=== PATIENT | female | born 1960 | race African-American/Black ===

== ENCOUNTER 2017-10-12 14:07 | Inpatient (IN) | payer BC ==
[~2017-10-12] VITALS: Ht 162.6 cm; Wt 104.3 kg
--- NOTE | 2017-10-12 14:26 | EKG ---
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
--- NOTE | 2017-10-12 14:42 | RAD ---
Single view of the chest. 10/12/2017 2:30 PM Indication: LT SIDED CHEST PAIN TODAY Comparison: None Findings: Exam somewhat limited by body habitus. No pneumothorax or pleural effusion is identified. No definite focal consolidation is seen. Heart size is within normal limits. Lower thorax is grossly intact. IMPRESSION: No radiographic evidence of acute cardiopulmonary process. Electronically signed by: Ced Livingston MD (10/12/2017 2:38 PM) [id number]
[2017-10-12 15:11] LABS: BASO # 0.1 x10^3/uL (0.0-0.2); BASO % 1 % (0-3); EOS # 0.1 x10^3/uL (0.0-0.7); EOS % 2 % (0-3); HEMATOCRIT 42.9 % (36.0-47.0); HEMOGLOBIN 14.4 g/dL (12.0-15.5); LYMPH # 2.2 x10^3/uL (1.0-4.8); LYMPH % 31 % (24-48); MEAN CORPUSCULAR HEMOGLOBIN 29 pg (25-35); MEAN CORPUSCULAR HGB CONC 34 g/dL (31-37); MEAN CORPUSCULAR VOLUME 88 fL (79-100); MONO # 0.5 x10^3/uL (0.0-1.1); MONO % 7 % (0-9); NEUT # 4.2 x10^3uL (1.8-7.7); NEUT % 59 % (31-73); PLATELET COUNT 333 x10^3/uL (140-400)
[2017-10-12 15:25] LABS: PROTHROMBIN TIME PATIENT 13.1 SEC (11.7-14.0)
[2017-10-12 15:34] LABS: CALCIUM 9.7 mg/dL (8.5-10.1); CREATININE 0.9 mg/dL (0.6-1.0); GFR 78.7; POTASSIUM 3.3 mmol/L (3.5-5.1)
--- NOTE | 2017-10-12 15:34 | PHYS DOC ---
Past Medical History Past Medical History: Hypertension Past Surgical History: Other Additional Past Surgical Histo: Inguinal hernia Alcohol Use: None Drug Use: None Adult General Chief Complaint Chief Complaint: CHEST PAIN HPI HPI 57-year-old female presenting to the emergency department today with chest pressure associated with nausea and shortness of breath. She describes it as a squeezing sensation that comes and goes. She took 1 nitroglycerin prior to arrival by EMS with no relief. This started around 3 AM this morning. It does not radiate. She has a family history of heart disease and high blood pressure. She denies diabetes high cholesterol or smoking. She denies unilateral leg swelling history of blood clots recent immobilization or surgery. Social history: The patient denies smoking drinking or IV drug use. Past medical history: History of high blood pressure. Review of systems is negative for fevers or chills. Positive for nausea without vomiting. Positive for shortness of air. All other review of systems is negative unless otherwise noted in history of present illness. ED course: 57-year-old female presenting to the emergency department today with a chest pressure. EKG obtained and reviewed by myself 2. Initial EKG performed at 2:21 PM shows sinus rhythm with a regular rate. ST segments are congruent. Not suggestive of ACS. Repeat EKG at 3:15 continues to show similar EKG findings without any acute evolving changes. Not suggestive of ACS. I reviewed the patient's EKG from clinic which appears to have an artifactual component to some of the ST segments. Blood work obtained which shows normal CBC. Chemistry panel unremarkable other than mild low potassium. D-dimer is elevated. We'll proceed with angiogram. I discussed the case with Dr. Wise who accepts the patient for admission. Angiogram pending at that time. Review of Systems Review of Systems SEE ABOVE. Current Medications Current Medications Current Medications Medications (Trade) Dose Ordered Sig/[facility] Start Time Stop Time Status Last Admin Dose Admin Morphine Sulfate (Morphine Sulfate) 2 mg PRN Q2HR PRN 10/12/17 15:45 10/13/17 15:44 Ondansetron HCl (Zofran) 4 mg PRN Q8HRS PRN 10/12/17 15:45 10/13/17 15:44 Sodium Chloride 1,000 ml @ 100 mls/hr Q10H 10/12/17 15:42 10/13/17 15:41 Allergies Allergies Allergies Coded Allergies Type Severity Reaction Last Updated Verified No Known Drug Allergies 10/12/17 No Physical Exam Physical Exam SEE ABOVE Constitutional: Well developed, well nourished, no acute distress, non-toxic appearance. [] HENT: Normocephalic, atraumatic, bilateral external ears normal, oropharynx moist, no oral exudates, nose normal. [] Eyes: PERRLA, EOMI, conjunctiva normal, no discharge. [] Neck: Normal range of motion, no tenderness, supple, no stridor. [] Cardiovascular:Heart rate regular rhythm, no murmur [] Lungs & Thorax: Bilateral breath sounds clear to auscultation [] Abdomen: Bowel sounds normal, soft, no tenderness, no masses, no pulsatile masses. [] Skin: Warm, dry, no erythema, no rash. [] Back: No tenderness, no CVA tenderness. [] Extremities: No tenderness, no cyanosis, no clubbing, ROM intact, no edema. [] No signs of DVT. Nontender venous system. Neurologic: Alert and oriented X 3, normal motor function, normal sensory function, no focal deficits noted. [] Psychologic: Affect normal, judgement normal, mood normal. [] Current Patient Data Vital Signs Vital Signs Date Time Temp Pulse Resp B/P (MAP) Pulse Ox O2 Delivery O2 Flow Rate FiO2 10/12/17 15:11 83 182/91 (121) 98 Room Air 10/12/17 14:10 98.1 20 98.1 Lab Values Laboratory Tests Test 10/12/17 14:45 White Blood Count 7.0 x10^3/uL (4.0-11.0) Red Blood Count 4.90 x10^6/uL (3.50-5.40) Hemoglobin 14.4 g/dL (12.0-15.5) Hematocrit 42.9 % (36.0-47.0) Mean Corpuscular Volume 88 fL (79-100) Mean Corpuscular Hemoglobin 29 pg (25-35) Mean Corpuscular Hemoglobin Concent 34 g/dL (31-37) Red Cell Distribution Width 15.0 % (11.5-14.5) H Platelet Count 333 x10^3/uL (140-400) Neutrophils (%) (Auto) 59 % (31-73) Lymphocytes (%) (Auto) 31 % (24-48) Monocytes (%) (Auto) 7 % (0-9) Eosinophils (%) (Auto) 2 % (0-3) Basophils (%) (Auto) 1 % (0-3) Neutrophils # (Auto) 4.2 x10^3uL (1.8-7.7) Lymphocytes # (Auto) 2.2 x10^3/uL (1.0-4.8) Monocytes # (Auto) 0.5 x10^3/uL (0.0-1.1) Eosinophils # (Auto) 0.1 x10^3/uL (0.0-0.7) Basophils # (Auto) 0.1 x10^3/uL (0.0-0.2) Prothrombin Time 13.1 SEC (11.7-14.0) Prothrombin Time INR 1.0 (0.8-1.1) PTT 25 SEC (24-38) D-Dimer (Nita) 1.00 ug/mlFEU (0.00-0.50) H Sodium Level 142 mmol/L (136-145) Potassium Level 3.3 mmol/L (3.5-5.1) L Chloride Level 105 mmol/L (98-107) Carbon Dioxide Level 27 mmol/L (21-32) Anion Gap 10 (6-14) Blood Urea Nitrogen 7 mg/dL (7-20) Creatinine 0.9 mg/dL (0.6-1.0) Estimated GFR (Cockcroft-Gault) 78.7 Glucose Level 113 mg/dL (70-99) H Calcium Level 9.7 mg/dL (8.5-10.1) Total Bilirubin 0.6 mg/dL (0.2-1.0) Direct Bilirubin 0.1 mg/dL (0.0-0.2) Aspartate Amino Transferase (AST) 17 U/L (15-37) Alanine Aminotransferase (ALT) 29 U/L (14-59) Alkaline Phosphatase 132 U/L (46-116) H Troponin I Quantitative < 0.017 ng/mL (0.000-0.055) RN-Ntm-Q-Type Natriuretic Peptide 46 pg/mL (0-124) Total Protein 8.0 g/dL (6.4-8.2) Albumin 3.5 g/dL (3.4-5.0) Lipase 74 U/L (73-393) Laboratory Tests 10/12/17 14:45 Laboratory Tests 10/12/17 14:45 EKG EKG [] Radiology/Procedures Radiology/Procedures [] Course & Med Decision Making Course & Med Decision Making Pertinent Labs and Imaging studies reviewed. (See chart for details) [] Dragon Disclaimer Dragon Disclaimer This electronic medical record was generated, in whole or in part, using a voice recognition dictation system. Departure Departure Impression: Primary Impression: Chest pain Disposition: ADMITTED INPATIENT Admitting Physician: Margie Wise Condition: STABLE Referrals: JAMIE WYNN (PCP) LOPEZ RESENDIZ MD Oct 12, 2017 15:34
[2017-10-12 15:36] LABS: ALBUMIN 3.5 g/dL (3.4-5.0); DIRECT BILIRUBIN 0.1 mg/dL (0.0-0.2); TOTAL BILIRUBIN 0.6 mg/dL (0.2-1.0)
[2017-10-12] MEDS ORDERED: MORPHINE SULFATE 2 MG/ML VIAL. IV PRN (15:45)
[2017-10-12] MEDS ORDERED: ONDANSETRON PF 4 MG/2 ML VIAL. IV PRN ×2 (15:45→16:45)
[2017-10-12] MEDS ORDERED: LABETALOL 20 MG/4 ML DISP.SYRIN. IVP PRN (16:30)
[2017-10-12] MEDS ORDERED: HYDROcodone/APAP 5/325MG 1 TAB TABLET PO PRN (16:30)
[2017-10-12] MEDS ORDERED: ACETAMINOPHEN 500 MG TABLET PO PRN (16:30)
[2017-10-12] MEDS ORDERED: CONTRAST GIVEN. MC PRN (16:30)
[2017-10-12] MEDS ORDERED: diphenhydrAMINE HCL 25 MG CAPSULE PO PRN (16:30)
[2017-10-12] MEDS ORDERED: IOHEXOL 300 MG/ML 100ML VIAL. IV ONE (16:30)
--- NOTE | 2017-10-12 16:53 | PDOC1 ---
History and Physical Date of Admission Date of Admission DATE: 10/12/17 TIME: 16:47 Identification/Chief Complaint Chief Complaint Midsternal chest pain she described as burning Source Source: Caregiver, Chart review, Patient History of Present Illness History of Present Illness 57-year-old obese female with a BMI 39.5 with hypertension, claims compliance to meds, non-diabetes, no personal history of CAD but family history of CAD, father at around age 55 or 60 from it, comes in because of chest pain that woke her up from sleep. She described as midsternal, burning, moved a little bit to both bilateral arms, no diaphoresis or presyncopal symptoms. Workup including EKG and troponins reassuring but mild hypokalemia 3.3, she is on losartan. D-dimer is elevated 1.0. CTA is planned not yet done. NOn smoker, non drinker, no recreation drug use, Still complaining of some chest discomfort, but otherwise nontoxic appearing. Blood pressure on the high side. 140s to 160 systolic. Denies any headache blurry vision or neck pain. Admitted for chest pain rule out ACS. She has never Had a stress test or exercise treadmill done in past Past Medical History Cardiovascular: HTN, Hyperlipidemia Past Surgical History Past Surgical History: Hernia Repair Family History Family History: Heart Disease, High Cholestrol, Hypertension Social History Smoke: No ALCOHOL: none Drugs: None Current Problem List Problem List Problems Medical Problems: (1) Chest pain Status: Acute Current Medications Current Medications Current Medications Ondansetron HCl (Zofran) 4 mg PRN Q8HRS PRN IV NAUSEA/VOMITING; Start 10/12/17 at 15:45; Stop 10/12/17 at 16:32; Status DC Morphine Sulfate (Morphine Sulfate) 2 mg PRN Q2HR PRN IV PAIN; Start 10/12/17 at 15:45; Stop 10/13/17 at 15:44 Sodium Chloride 1,000 ml @ 100 mls/hr Q10H IV ; Start 10/12/17 at 15:42; Stop 10/13/17 at 15:41 Iohexol (Omnipaque 300 Mg/ml) 75 ml 1X ONCE IV ; Start 10/12/17 at 16:30; Stop 10/12/17 at 16:31; Status DC Info (CONTRAST GIVEN -- Rx MONITORING) 1 each PRN DAILY PRN MC SEE COMMENTS; Start 10/12/17 at 16:30; Stop 10/14/17 at 16:29 Ondansetron HCl (Zofran) 4 mg PRN Q6HRS PRN IV NAUSEA/VOMITING Last administered on 10/12/17at 16:40; Start 10/12/17 at 16:45 Acetaminophen (Tylenol) 500 mg PRN Q6HRS PRN PO MILD PAIN / TEMP; Start at 16:30 Acetaminophen/ Hydrocodone Bitart (Lortab 5/325) 1 tab PRN Q4HRS PRN PO PAIN; Start 10/12/17 at 16:30 Labetalol HCl (Normodyne Iv Push) 20 mg PRN Q2HR PRN IVP HYPERTENSION, SEE COMMENTS; Start 10/12/17 at 16:30 Diphenhydramine HCl (Benadryl) 25 mg PRN QHS PRN PO INSOMNIA; Start 10/12/17 at 16:30 Allergies Allergies: Coded Allergies: No Known Drug Allergies (Unverified , 10/12/17) ROS Review of System Per history of present illness the rest of ROS 14 point negative Physical Exam General: Alert, Oriented X3, Cooperative, No acute distress HEENT: Atraumatic, PERRLA, EOMI Lungs: Clear to auscultation, Normal air movement Heart: S1S2, RRR, no thrills, no rubs, no gallops, no murmurs Cardiovascular: S1, S2 Breasts: Normal, Rt breast nml w/o mass, Lt breast nml w/o mass, Nipples normal Abdomen: Normal bowel sounds, Soft, No tenderness, No hepatosplenomegaly, No masses Rectal Exam: not examined PELVIC: Nml ext genitalia Extremities: No clubbing, No cyanosis, No edema, Normal pulses, No tenderness/ swelling Skin: No rashes, No breakdown, No significant lesion Neuro: Normal gait, Normal speech, Strength at 5/5 X4 ext, Normal tone, Sensation intact, Cranial nerves 3-12 NL, Reflexes 2+ Psych/Mental Status: Mental status NL, Mood NL Vitals Vitals Vital Signs Date Time Temp Pulse Resp B/P (MAP) Pulse Ox O2 Delivery O2 Flow Rate FiO2 10/12/17 15:11 83 182/91 (121) 98 Room Air 10/12/17 14:10 98.1 20 98.1 Labs Labs Laboratory Tests Test 10/12/17 14:45 White Blood Count 7.0 x10^3/uL (4.0-11.0) Red Blood Count 4.90 x10^6/uL (3.50-5.40) Hemoglobin 14.4 g/dL (12.0-15.5) Hematocrit 42.9 % (36.0-47.0) Mean Corpuscular Volume 88 fL (79-100) Mean Corpuscular Hemoglobin 29 pg (25-35) Mean Corpuscular Hemoglobin Concent 34 g/dL (31-37) Red Cell Distribution Width 15.0 % (11.5-14.5) Platelet Count 333 x10^3/uL (140-400) Neutrophils (%) (Auto) 59 % (31-73) Lymphocytes (%) (Auto) 31 % (24-48) Monocytes (%) (Auto) 7 % (0-9) Eosinophils (%) (Auto) 2 % (0-3) Basophils (%) (Auto) 1 % (0-3) Neutrophils # (Auto) 4.2 x10^3uL (1.8-7.7) Lymphocytes # (Auto) 2.2 x10^3/uL (1.0-4.8) Monocytes # (Auto) 0.5 x10^3/uL (0.0-1.1) Eosinophils # (Auto) 0.1 x10^3/uL (0.0-0.7) Basophils # (Auto) 0.1 x10^3/uL (0.0-0.2) Prothrombin Time 13.1 SEC (11.7-14.0) Prothromb Time International Ratio 1.0 (0.8-1.1) Activated Partial Thromboplast Time 25 SEC (24-38) D-Dimer (Nita) 1.00 ug/mlFEU (0.00-0.50) Sodium Level 142 mmol/L (136-145) Potassium Level 3.3 mmol/L (3.5-5.1) Chloride Level 105 mmol/L (98-107) Carbon Dioxide Level 27 mmol/L (21-32) Anion Gap 10 (6-14) Blood Urea Nitrogen 7 mg/dL (7-20) Creatinine 0.9 mg/dL (0.6-1.0) Estimated GFR (Cockcroft-Gault) 78.7 Glucose Level 113 mg/dL (70-99) Calcium Level 9.7 mg/dL (8.5-10.1) Total Bilirubin 0.6 mg/dL (0.2-1.0) Direct Bilirubin 0.1 mg/dL (0.0-0.2) Aspartate Amino Transf (AST/SGOT) 17 U/L (15-37) Alanine Aminotransferase (ALT/SGPT) 29 U/L (14-59) Alkaline Phosphatase 132 U/L (46-116) Troponin I Quantitative < 0.017 ng/mL (0.000-0.055) SZ-Dst-T-Type Natriuretic Peptide 46 pg/mL (0-124) Total Protein 8.0 g/dL (6.4-8.2) Albumin 3.5 g/dL (3.4-5.0) Lipase 74 U/L (73-393) Laboratory Tests Test 10/12/17 14:45 White Blood Count 7.0 x10^3/uL (4.0-11.0) Red Blood Count 4.90 x10^6/uL (3.50-5.40) Hemoglobin 14.4 g/dL (12.0-15.5) Hematocrit 42.9 % (36.0-47.0) Mean Corpuscular Volume 88 fL (79-100) Mean Corpuscular Hemoglobin 29 pg (25-35) Mean Corpuscular Hemoglobin Concent 34 g/dL (31-37) Red Cell Distribution Width 15.0 % (11.5-14.5) Platelet Count 333 x10^3/uL (140-400) Neutrophils (%) (Auto) 59 % (31-73) Lymphocytes (%) (Auto) 31 % (24-48) Monocytes (%) (Auto) 7 % (0-9) Eosinophils (%) (Auto) 2 % (0-3) Basophils (%) (Auto) 1 % (0-3) Neutrophils # (Auto) 4.2 x10^3uL (1.8-7.7) Lymphocytes # (Auto) 2.2 x10^3/uL (1.0-4.8) Monocytes # (Auto) 0.5 x10^3/uL (0.0-1.1) Eosinophils # (Auto) 0.1 x10^3/uL (0.0-0.7) Basophils # (Auto) 0.1 x10^3/uL (0.0-0.2) Prothrombin Time 13.1 SEC (11.7-14.0) Prothromb Time International Ratio 1.0 (0.8-1.1) Activated Partial Thromboplast Time 25 SEC (24-38) D-Dimer (Nita) 1.00 ug/mlFEU (0.00-0.50) Sodium Level 142 mmol/L (136-145) Potassium Level 3.3 mmol/L (3.5-5.1) Chloride Level 105 mmol/L (98-107) Carbon Dioxide Level 27 mmol/L (21-32) Anion Gap 10 (6-14) Blood Urea Nitrogen 7 mg/dL (7-20) Creatinine 0.9 mg/dL (0.6-1.0) Estimated GFR (Cockcroft-Gault) 78.7 Glucose Level 113 mg/dL (70-99) Calcium Level 9.7 mg/dL (8.5-10.1) Total Bilirubin 0.6 mg/dL (0.2-1.0) Direct Bilirubin 0.1 mg/dL (0.0-0.2) Aspartate Amino Transf (AST/SGOT) 17 U/L (15-37) Alanine Aminotransferase (ALT/SGPT) 29 U/L (14-59) Alkaline Phosphatase 132 U/L (46-116) Troponin I Quantitative < 0.017 ng/mL (0.000-0.055) NQ-Wmu-R-Type Natriuretic Peptide 46 pg/mL (0-124) Total Protein 8.0 g/dL (6.4-8.2) Albumin 3.5 g/dL (3.4-5.0) Lipase 74 U/L (73-393) VTE Prophylaxis Ordered VTE Prophylaxis Devices: Yes VTE Pharmacological Prophylaxi: Yes Assessment/Plan Assessment/Plan Chest pain likely GERD or GI related - she described it as a burning, so far EKG reassuring Family history of CAD Obese Nonsmoker nondrinker Accelerated hypertension POA Mild hypokalemia Elevated d-dimer 1.0, no history of clots in the past PLAN: Admit 2 midnights Cards consult Trend troponin okay for regular diet KCl [address] angio - will follow-up results Home meds I have reconciled Control the blood pressure Further recs pending above course Trial fo GI cocktail Start PPI Needs to lose weight seen at ER CAIN SHIRLEY MD Oct 12, 2017 16:53
[2017-10-12] MEDS ORDERED: LIDO:MAALOX 1:1 20 ML SINGLE DOSE. PO PRN (17:00)
[2017-10-12] MEDS ORDERED: POTASSIUM CHLORIDE 20 MEQ TABLET.ER. PO ONE (17:30)
[2017-10-12] MEDS ORDERED: PANTOPRAZOLE 40 MG TABLET.DR. PO ONE (17:30)
--- NOTE | 2017-10-12 17:33 | RAD ---
CTA chest with contrast Indication: MIDSTERNAL CHEST PAIN AND SHORTNESS OF BREATH
OMNI 300 75ML
NO PRIORS . Comparison: No comparison is available. Technique: After intravenous contrast administration, CT imaging was performed of the chest. MIP reconstructions were obtained. Exposure: One or more of the following individualized dose reduction techniques were utilized for this examination: 1. Automated exposure control 2. Adjustment of the mA and/or kV according to patient size 3. Use of iterative reconstruction technique. FINDINGS: Pulmonary arteries:No evidence of pulmonary embolism. Thoracic aorta: Pulsatility artifact of the ascending aorta. No evidence of aortic aneurysm. No descending aortic dissection. Thyroid gland:Visualized aspect is unremarkable. Lymph nodes:No significant enlargement Heart: No significant pericadial effusion. Esophagus: Unremarkable Pleural spaces: No significant effusion Lungs: Mild mosaic attenuation. No consolidating infiltrate. Trachea and central airways: Patent Bones: Degenerative spondylosis of the visualized spine. Upper abdomen: Slices through the upper abdomen are limited due to the technique .No obvious acute findings. IMPRESSION: 1. No evidence of pulmonary embolism. 2. Mild mosaic attenuation of the lungs, could indicate small airway disease or atelectasis. Electronically signed by: Davonte Hirsch MD (10/12/2017 5:28 PM) [id number]
[2017-10-12 19:00] VITALS: BP 160/76
[2017-10-12] MEDS ORDERED: LOSA50TA6 PO (19:42)
[2017-10-12] MEDS: IV NORMAL SALINE 1000ML BAG 1,000 ML IV SCH (20:11)
[2017-10-12 23:00] VITALS: BP 134/80
[2017-10-13 03:18] VITALS: BP 129/67
[2017-10-13 05:27] LABS: BASO % 0 % (0-3); EOS # 0.2 x10^3/uL (0.0-0.7); EOS % 2 % (0-3); HEMATOCRIT 40.1 % (36.0-47.0); HEMOGLOBIN 13.6 g/dL (12.0-15.5); LYMPH # 2.4 x10^3/uL (1.0-4.8); LYMPH % 33 % (24-48); MEAN CORPUSCULAR HEMOGLOBIN 30 pg (25-35); MEAN CORPUSCULAR HGB CONC 34 g/dL (31-37); MEAN CORPUSCULAR VOLUME 88 fL (79-100); MONO # 0.4 x10^3/uL (0.0-1.1); MONO % 5 % (0-9); NEUT # 4.2 x10^3uL (1.8-7.7); NEUT % 59 % (31-73); PLATELET COUNT 306 x10^3/uL (140-400); RED BLOOD COUNT 4.57 x10^6/uL (3.50-5.40); WHITE BLOOD COUNT 7.2 x10^3/uL (4.0-11.0)
[2017-10-13] MEDS: IV NORMAL SALINE 1000ML BAG 1,000 ML IV SCH ×2 (05:51→11:42)
[2017-10-13 06:04] LABS: CALCIUM 9.4 mg/dL (8.5-10.1); GFR 69.7; POTASSIUM 3.8 mmol/L (3.5-5.1)
[2017-10-13 07:00] VITALS: BP 157/80
[2017-10-13] MEDS ORDERED: PANTOPRAZOLE 40 MG TABLET.DR. PO SCH (07:30)
[2017-10-13 10:23] LABS: % BANDS 9 % (0-9); % EOS 1 % (0-5); % LYMPHS 36 % (24-48); % MONOS 5 % (0-10); % SEGS 49 % (35-66)
[2017-10-13 10:49] LABS: PLT ESTIMATE ADEQUATE (ADEQUATE)
[2017-10-13 11:00] VITALS: BP 150/71
--- NOTE | 2017-10-13 11:35 | PDOC2 ---
CONSULT Date of Consult Date of Consult DATE: 10/13/17 TIME: 11:33 Reason for Consult Reason for Consult: Chest pain Referring Physician Referring Physician: Dr. Wise Identification/Chief Complaint Chief Complaint Chest pain Source Source: Chart review, Patient History of Present Illness Reason for Visit: 57-year-old female with history of hypertension presented with retrosternal chest pressure 8/10 severity that woke her up from sleep. She complained of mild associated nausea but denied any dyspnea, palpitations or syncope. Past Medical History Cardiovascular: HTN, Hyperlipidemia Past Surgical History Past Surgical History: Hernia Repair Family History Family History: Heart Disease, High Cholestrol, Hypertension Social History No ALCOHOL: none Drugs: None Current Problem List Problem List Problems Medical Problems: (1) Chest pain Status: Acute Current Medications Current Medications Current Medications Ondansetron HCl (Zofran) 4 mg PRN Q8HRS PRN IV NAUSEA/VOMITING; Start 10/12/17 at 15:45; Stop 10/12/17 at 16:32; Status DC Morphine Sulfate (Morphine Sulfate) 2 mg PRN Q2HR PRN IV PAIN; Start 10/12/17 at 15:45; Stop 10/13/17 at 15:44 Sodium Chloride 1,000 ml @ 100 mls/hr Q10H IV Last administered on 10/13/17at 05:51; Start 10/12/17 at 15:42; Stop 10/13/17 at 15:41 Iohexol (Omnipaque 300 Mg/ml) 75 ml 1X ONCE IV Last administered on 10/12/17at 16:30; Start 10/12/17 at 16:30; Stop 10/12/17 at 16:31; Status DC Info (CONTRAST GIVEN -- Rx MONITORING) 1 each PRN DAILY PRN MC SEE COMMENTS; Start 10/12/17 at 16:30; Stop 10/14/17 at 16:29 Ondansetron HCl (Zofran) 4 mg PRN Q6HRS PRN IV NAUSEA/VOMITING Last administered on 10/12/17at 16:40; Start 10/12/17 at 16:45 Acetaminophen (Tylenol) 500 mg PRN Q6HRS PRN PO MILD PAIN / TEMP; Start at 16:30 Acetaminophen/ Hydrocodone Bitart (Lortab 5/325) 1 tab PRN Q4HRS PRN PO PAIN MODERATE TO SEVERE; Start 10/12/17 at 16:30 Labetalol HCl (Normodyne Iv Push) 20 mg PRN Q2HR PRN IVP HYPERTENSION, SEE COMMENTS; Start 10/12/17 at 16:30 Diphenhydramine HCl (Benadryl) 25 mg PRN QHS PRN PO INSOMNIA; Start 10/12/17 at 16:30 Potassium Chloride (Klor-Con) 40 meq 1X ONCE PO Last administered on at 18:30; Start 10/12/17 at 17:30; Stop 10/12/17 at 17:31; Status DC Multi-Ingredient Mouthwash/Gargle (Gi Cocktail) 20 ml PRN QID PRN PO CHEST PAIN Last administered on 10/12/17at 20:08; Start 10/12/17 at 17:00 Pantoprazole Sodium (Protonix) 40 mg DAILYAC PO Last administered on 10/13/17at 08:17; Start 10/13/17 at 07:30 Pantoprazole Sodium (Protonix) 40 mg 1X ONCE PO Last administered on at 18:29; Start 10/12/17 at 17:30; Stop 10/12/17 at 17:31; Status DC Active Scripts Active Reported Losartan Potassium 50 Mg Tablet 50 Mg PO DAILY Allergies Allergies: Coded Allergies: No Known Drug Allergies (Unverified , 10/12/17) ROS PSYCHOLOGICAL ROS: No: Hallucinations Eyes: No Loss of vision HEENT: No: Epistaxis Respiratory: No: Hemoptysis Cardiovascular: yes Chest Pain Gastrointestinal: Yes Nausea; No Vomiting Genitourinary: No Hematuria Neurological: No Seizures Skin: No Rash Physical Exam General: Alert, Oriented X3 HEENT: Atraumatic, PERRLA Lungs: Clear to auscultation Heart: Regular rate Abdomen: Soft, No tenderness Extremities: No edema Psych/Mental Status: Mood NL Vitals VITALS Vital Signs Date Time Temp Pulse Resp B/P (MAP) Pulse Ox O2 Delivery O2 Flow Rate FiO2 10/13/17 08:00 Room Air 10/13/17 07:00 97.7 81 19 157/80 (105) 93 97.7 Labs Labs Laboratory Tests Test 10/12/17 14:45 10/12/17 19:00 10/12/17 22:30 10/13/17 04:00 White Blood Count 7.0 x10^3/uL (4.0-11.0) 7.2 x10^3/uL (4.0-11.0) Red Blood Count 4.90 x10^6/uL (3.50-5.40) 4.57 x10^6/uL (3.50-5.40) Hemoglobin 14.4 g/dL (12.0-15.5) 13.6 g/dL (12.0-15.5) Hematocrit 42.9 % (36.0-47.0) 40.1 % (36.0-47.0) Mean Corpuscular Volume 88 fL (79-100) 88 fL (79-100) Mean Corpuscular Hemoglobin 29 pg (25-35) 30 pg (25-35) Mean Corpuscular Hemoglobin Concent 34 g/dL (31-37) 34 g/dL (31-37) Red Cell Distribution Width 15.0 % (11.5-14.5) 15.0 % (11.5-14.5) Platelet Count 333 x10^3/uL (140-400) 306 x10^3/uL (140-400) Neutrophils (%) (Auto) 59 % (31-73) 59 % (31-73) Lymphocytes (%) (Auto) 31 % (24-48) 33 % (24-48) Monocytes (%) (Auto) 7 % (0-9) 5 % (0-9) Eosinophils (%) (Auto) 2 % (0-3) 2 % (0-3) Basophils (%) (Auto) 1 % (0-3) 0 % (0-3) Neutrophils # (Auto) 4.2 x10^3uL (1.8-7.7) 4.2 x10^3uL (1.8-7.7) Lymphocytes # (Auto) 2.2 x10^3/uL (1.0-4.8) 2.4 x10^3/uL (1.0-4.8) Monocytes # (Auto) 0.5 x10^3/uL (0.0-1.1) 0.4 x10^3/uL (0.0-1.1) Eosinophils # (Auto) 0.1 x10^3/uL (0.0-0.7) 0.2 x10^3/uL (0.0-0.7) Basophils # (Auto) 0.1 x10^3/uL (0.0-0.2) 0.0 x10^3/uL (0.0-0.2) Prothrombin Time 13.1 SEC (11.7-14.0) Prothromb Time International Ratio 1.0 (0.8-1.1) Activated Partial Thromboplast Time 25 SEC (24-38) D-Dimer (Nita) 1.00 ug/mlFEU (0.00-0.50) Sodium Level 142 mmol/L (136-145) 143 mmol/L (136-145) Potassium Level 3.3 mmol/L (3.5-5.1) 3.8 mmol/L (3.5-5.1) Chloride Level 105 mmol/L (98-107) 105 mmol/L (98-107) Carbon Dioxide Level 27 mmol/L (21-32) 27 mmol/L (21-32) Anion Gap 10 (6-14) 11 (6-14) Blood Urea Nitrogen 7 mg/dL (7-20) 9 mg/dL (7-20) Creatinine 0.9 mg/dL (0.6-1.0) 1.0 mg/dL (0.6-1.0) Estimated GFR (Cockcroft-Gault) 78.7 69.7 Glucose Level 113 mg/dL (70-99) 131 mg/dL (70-99) Calcium Level 9.7 mg/dL (8.5-10.1) 9.4 mg/dL (8.5-10.1) Total Bilirubin 0.6 mg/dL (0.2-1.0) Direct Bilirubin 0.1 mg/dL (0.0-0.2) Aspartate Amino Transf (AST/SGOT) 17 U/L (15-37) Alanine Aminotransferase (ALT/SGPT) 29 U/L (14-59) Alkaline Phosphatase 132 U/L (46-116) Troponin I Quantitative < 0.017 ng/mL (0.000-0.055) < 0.017 ng/mL (0.000-0.055) < 0.017 ng/mL (0.000-0.055) TZ-Aws-L-Type Natriuretic Peptide 46 pg/mL (0-124) Total Protein 8.0 g/dL (6.4-8.2) Albumin 3.5 g/dL (3.4-5.0) Lipase 74 U/L (73-393) Segmented Neutrophils % 49 % (35-66) Band Neutrophils % 9 % (0-9) Lymphocytes % 36 % (24-48) Monocytes % 5 % (0-10) Eosinophils % 1 % (0-5) Platelet Estimate Adequate (ADEQUATE) Laboratory Tests Test 10/12/17 14:45 10/12/17 19:00 10/12/17 22:30 10/13/17 04:00 White Blood Count 7.0 x10^3/uL (4.0-11.0) 7.2 x10^3/uL (4.0-11.0) Red Blood Count 4.90 x10^6/uL (3.50-5.40) 4.57 x10^6/uL (3.50-5.40) Hemoglobin 14.4 g/dL (12.0-15.5) 13.6 g/dL (12.0-15.5) Hematocrit 42.9 % (36.0-47.0) 40.1 % (36.0-47.0) Mean Corpuscular Volume 88 fL (79-100) 88 fL (79-100) Mean Corpuscular Hemoglobin 29 pg (25-35) 30 pg (25-35) Mean Corpuscular Hemoglobin Concent 34 g/dL (31-37) 34 g/dL (31-37) Red Cell Distribution Width 15.0 % (11.5-14.5) 15.0 % (11.5-14.5) Platelet Count 333 x10^3/uL (140-400) 306 x10^3/uL (140-400) Neutrophils (%) (Auto) 59 % (31-73) 59 % (31-73) Lymphocytes (%) (Auto) 31 % (24-48) 33 % (24-48) Monocytes (%) (Auto) 7 % (0-9) 5 % (0-9) Eosinophils (%) (Auto) 2 % (0-3) 2 % (0-3) Basophils (%) (Auto) 1 % (0-3) 0 % (0-3) Neutrophils # (Auto) 4.2 x10^3uL (1.8-7.7) 4.2 x10^3uL (1.8-7.7) Lymphocytes # (Auto) 2.2 x10^3/uL (1.0-4.8) 2.4 x10^3/uL (1.0-4.8) Monocytes # (Auto) 0.5 x10^3/uL (0.0-1.1) 0.4 x10^3/uL (0.0-1.1) Eosinophils # (Auto) 0.1 x10^3/uL (0.0-0.7) 0.2 x10^3/uL (0.0-0.7) Basophils # (Auto) 0.1 x10^3/uL (0.0-0.2) 0.0 x10^3/uL (0.0-0.2) Prothrombin Time 13.1 SEC (11.7-14.0) Prothromb Time International Ratio 1.0 (0.8-1.1) Activated Partial Thromboplast Time 25 SEC (24-38) D-Dimer (Nita) 1.00 ug/mlFEU (0.00-0.50) Sodium Level 142 mmol/L (136-145) 143 mmol/L (136-145) Potassium Level 3.3 mmol/L (3.5-5.1) 3.8 mmol/L (3.5-5.1) Chloride Level 105 mmol/L (98-107) 105 mmol/L (98-107) Carbon Dioxide Level 27 mmol/L (21-32) 27 mmol/L (21-32) Anion Gap 10 (6-14) 11 (6-14) Blood Urea Nitrogen 7 mg/dL (7-20) 9 mg/dL (7-20) Creatinine 0.9 mg/dL (0.6-1.0) 1.0 mg/dL (0.6-1.0) Estimated GFR (Cockcroft-Gault) 78.7 69.7 Glucose Level 113 mg/dL (70-99) 131 mg/dL (70-99) Calcium Level 9.7 mg/dL (8.5-10.1) 9.4 mg/dL (8.5-10.1) Total Bilirubin 0.6 mg/dL (0.2-1.0) Direct Bilirubin 0.1 mg/dL (0.0-0.2) Aspartate Amino Transf (AST/SGOT) 17 U/L (15-37) Alanine Aminotransferase (ALT/SGPT) 29 U/L (14-59) Alkaline Phosphatase 132 U/L (46-116) Troponin I Quantitative < 0.017 ng/mL (0.000-0.055) < 0.017 ng/mL (0.000-0.055) < 0.017 ng/mL (0.000-0.055) JB-Neg-T-Type Natriuretic Peptide 46 pg/mL (0-124) Total Protein 8.0 g/dL (6.4-8.2) Albumin 3.5 g/dL (3.4-5.0) Lipase 74 U/L (73-393) Segmented Neutrophils % 49 % (35-66) Band Neutrophils % 9 % (0-9) Lymphocytes % 36 % (24-48) Monocytes % 5 % (0-10) Eosinophils % 1 % (0-5) Platelet Estimate Adequate (ADEQUATE) Assessment/Plan Assessment/Plan 1. Chest pain with atypical features: Myocardial infarction has been ruled out. Chest pain appears to be GI etiology. Consider proton pump inhibitors. Plan for outpatient 2-D echo and Lexiscan nuclear stress test. 2. Accelerated hypertension: Blood pressure better controlled since admission. Continue current medications. Thank you for your consultation. DANIEL ALVAREZ MD Oct 13, 2017 11:35
--- NOTE | 2017-10-13 12:02 | PDOC ---
PROGRESS NOTES Chief Complaint Chief Complaint Chest pain Family history of CAD Obese Nonsmoker nondrinker Accelerated hypertension POA Mild hypokalemia Elevated d-dimer 1.0, no history of clots in the past History of Present Illness History of Present Illness feels better, chest wall paain, enzymes neg, seen byCV , home today and stress test out pt by CV Vitals Vitals Vital Signs Date Time Temp Pulse Resp B/P (MAP) Pulse Ox O2 Delivery O2 Flow Rate FiO2 10/13/17 08:00 Room Air 10/13/17 07:00 97.7 81 19 157/80 (105) 93 97.7 Physical Exam General: Alert, Oriented X3, Cooperative, No acute distress Abdomen: Normal bowel sounds, Soft, No tenderness, No hepatosplenomegaly, No masses Extremities: No clubbing, No cyanosis, No edema, Normal pulses, No tenderness/ swelling Skin: No rashes, No breakdown, No significant lesion Labs LABS Laboratory Tests Test 10/12/17 14:45 10/12/17 19:00 10/12/17 22:30 10/13/17 04:00 White Blood Count 7.0 x10^3/uL (4.0-11.0) 7.2 x10^3/uL (4.0-11.0) Red Blood Count 4.90 x10^6/uL (3.50-5.40) 4.57 x10^6/uL (3.50-5.40) Hemoglobin 14.4 g/dL (12.0-15.5) 13.6 g/dL (12.0-15.5) Hematocrit 42.9 % (36.0-47.0) 40.1 % (36.0-47.0) Mean Corpuscular Volume 88 fL (79-100) 88 fL (79-100) Mean Corpuscular Hemoglobin 29 pg (25-35) 30 pg (25-35) Mean Corpuscular Hemoglobin Concent 34 g/dL (31-37) 34 g/dL (31-37) Red Cell Distribution Width 15.0 % (11.5-14.5) 15.0 % (11.5-14.5) Platelet Count 333 x10^3/uL (140-400) 306 x10^3/uL (140-400) Neutrophils (%) (Auto) 59 % (31-73) 59 % (31-73) Lymphocytes (%) (Auto) 31 % (24-48) 33 % (24-48) Monocytes (%) (Auto) 7 % (0-9) 5 % (0-9) Eosinophils (%) (Auto) 2 % (0-3) 2 % (0-3) Basophils (%) (Auto) 1 % (0-3) 0 % (0-3) Neutrophils # (Auto) 4.2 x10^3uL (1.8-7.7) 4.2 x10^3uL (1.8-7.7) Lymphocytes # (Auto) 2.2 x10^3/uL (1.0-4.8) 2.4 x10^3/uL (1.0-4.8) Monocytes # (Auto) 0.5 x10^3/uL (0.0-1.1) 0.4 x10^3/uL (0.0-1.1) Eosinophils # (Auto) 0.1 x10^3/uL (0.0-0.7) 0.2 x10^3/uL (0.0-0.7) Basophils # (Auto) 0.1 x10^3/uL (0.0-0.2) 0.0 x10^3/uL (0.0-0.2) Prothrombin Time 13.1 SEC (11.7-14.0) Prothromb Time International Ratio 1.0 (0.8-1.1) Activated Partial Thromboplast Time 25 SEC (24-38) D-Dimer (Nita) 1.00 ug/mlFEU (0.00-0.50) Sodium Level 142 mmol/L (136-145) 143 mmol/L (136-145) Potassium Level 3.3 mmol/L (3.5-5.1) 3.8 mmol/L (3.5-5.1) Chloride Level 105 mmol/L (98-107) 105 mmol/L (98-107) Carbon Dioxide Level 27 mmol/L (21-32) 27 mmol/L (21-32) Anion Gap 10 (6-14) 11 (6-14) Blood Urea Nitrogen 7 mg/dL (7-20) 9 mg/dL (7-20) Creatinine 0.9 mg/dL (0.6-1.0) 1.0 mg/dL (0.6-1.0) Estimated GFR (Cockcroft-Gault) 78.7 69.7 Glucose Level 113 mg/dL (70-99) 131 mg/dL (70-99) Calcium Level 9.7 mg/dL (8.5-10.1) 9.4 mg/dL (8.5-10.1) Total Bilirubin 0.6 mg/dL (0.2-1.0) Direct Bilirubin 0.1 mg/dL (0.0-0.2) Aspartate Amino Transf (AST/SGOT) 17 U/L (15-37) Alanine Aminotransferase (ALT/SGPT) 29 U/L (14-59) Alkaline Phosphatase 132 U/L (46-116) Troponin I Quantitative < 0.017 ng/mL (0.000-0.055) < 0.017 ng/mL (0.000-0.055) < 0.017 ng/mL (0.000-0.055) WS-Qav-Y-Type Natriuretic Peptide 46 pg/mL (0-124) Total Protein 8.0 g/dL (6.4-8.2) Albumin 3.5 g/dL (3.4-5.0) Lipase 74 U/L (73-393) Segmented Neutrophils % 49 % (35-66) Band Neutrophils % 9 % (0-9) Lymphocytes % 36 % (24-48) Monocytes % 5 % (0-10) Eosinophils % 1 % (0-5) Platelet Estimate Adequate (ADEQUATE) Assessment and Plan Assessmemt and Plan Problems Medical Problems: (1) Chest pain Status: Acute Comment Review of Relevant I have reviewed the following items shaneka (where applicable) has been applied. Labs Laboratory Tests Test 10/12/17 14:45 10/12/17 19:00 10/12/17 22:30 10/13/17 04:00 White Blood Count 7.0 x10^3/uL (4.0-11.0) 7.2 x10^3/uL (4.0-11.0) Red Blood Count 4.90 x10^6/uL (3.50-5.40) 4.57 x10^6/uL (3.50-5.40) Hemoglobin 14.4 g/dL (12.0-15.5) 13.6 g/dL (12.0-15.5) Hematocrit 42.9 % (36.0-47.0) 40.1 % (36.0-47.0) Mean Corpuscular Volume 88 fL (79-100) 88 fL (79-100) Mean Corpuscular Hemoglobin 29 pg (25-35) 30 pg (25-35) Mean Corpuscular Hemoglobin Concent 34 g/dL (31-37) 34 g/dL (31-37) Red Cell Distribution Width 15.0 % (11.5-14.5) 15.0 % (11.5-14.5) Platelet Count 333 x10^3/uL (140-400) 306 x10^3/uL (140-400) Neutrophils (%) (Auto) 59 % (31-73) 59 % (31-73) Lymphocytes (%) (Auto) 31 % (24-48) 33 % (24-48) Monocytes (%) (Auto) 7 % (0-9) 5 % (0-9) Eosinophils (%) (Auto) 2 % (0-3) 2 % (0-3) Basophils (%) (Auto) 1 % (0-3) 0 % (0-3) Neutrophils # (Auto) 4.2 x10^3uL (1.8-7.7) 4.2 x10^3uL (1.8-7.7) Lymphocytes # (Auto) 2.2 x10^3/uL (1.0-4.8) 2.4 x10^3/uL (1.0-4.8) Monocytes # (Auto) 0.5 x10^3/uL (0.0-1.1) 0.4 x10^3/uL (0.0-1.1) Eosinophils # (Auto) 0.1 x10^3/uL (0.0-0.7) 0.2 x10^3/uL (0.0-0.7) Basophils # (Auto) 0.1 x10^3/uL (0.0-0.2) 0.0 x10^3/uL (0.0-0.2) Prothrombin Time 13.1 SEC (11.7-14.0) Prothromb Time International Ratio 1.0 (0.8-1.1) Activated Partial Thromboplast Time 25 SEC (24-38) D-Dimer (Nita) 1.00 ug/mlFEU (0.00-0.50) Sodium Level 142 mmol/L (136-145) 143 mmol/L (136-145) Potassium Level 3.3 mmol/L (3.5-5.1) 3.8 mmol/L (3.5-5.1) Chloride Level 105 mmol/L (98-107) 105 mmol/L (98-107) Carbon Dioxide Level 27 mmol/L (21-32) 27 mmol/L (21-32) Anion Gap 10 (6-14) 11 (6-14) Blood Urea Nitrogen 7 mg/dL (7-20) 9 mg/dL (7-20) Creatinine 0.9 mg/dL (0.6-1.0) 1.0 mg/dL (0.6-1.0) Estimated GFR (Cockcroft-Gault) 78.7 69.7 Glucose Level 113 mg/dL (70-99) 131 mg/dL (70-99) Calcium Level 9.7 mg/dL (8.5-10.1) 9.4 mg/dL (8.5-10.1) Total Bilirubin 0.6 mg/dL (0.2-1.0) Direct Bilirubin 0.1 mg/dL (0.0-0.2) Aspartate Amino Transf (AST/SGOT) 17 U/L (15-37) Alanine Aminotransferase (ALT/SGPT) 29 U/L (14-59) Alkaline Phosphatase 132 U/L (46-116) Troponin I Quantitative < 0.017 ng/mL (0.000-0.055) < 0.017 ng/mL (0.000-0.055) < 0.017 ng/mL (0.000-0.055) HX-Jic-O-Type Natriuretic Peptide 46 pg/mL (0-124) Total Protein 8.0 g/dL (6.4-8.2) Albumin 3.5 g/dL (3.4-5.0) Lipase 74 U/L (73-393) Segmented Neutrophils % 49 % (35-66) Band Neutrophils % 9 % (0-9) Lymphocytes % 36 % (24-48) Monocytes % 5 % (0-10) Eosinophils % 1 % (0-5) Platelet Estimate Adequate (ADEQUATE) Laboratory Tests Test 10/12/17 14:45 10/12/17 19:00 10/12/17 22:30 10/13/17 04:00 White Blood Count 7.0 x10^3/uL (4.0-11.0) 7.2 x10^3/uL (4.0-11.0) Red Blood Count 4.90 x10^6/uL (3.50-5.40) 4.57 x10^6/uL (3.50-5.40) Hemoglobin 14.4 g/dL (12.0-15.5) 13.6 g/dL (12.0-15.5) Hematocrit 42.9 % (36.0-47.0) 40.1 % (36.0-47.0) Mean Corpuscular Volume 88 fL (79-100) 88 fL (79-100) Mean Corpuscular Hemoglobin 29 pg (25-35) 30 pg (25-35) Mean Corpuscular Hemoglobin Concent 34 g/dL (31-37) 34 g/dL (31-37) Red Cell Distribution Width 15.0 % (11.5-14.5) 15.0 % (11.5-14.5) Platelet Count 333 x10^3/uL (140-400) 306 x10^3/uL (140-400) Neutrophils (%) (Auto) 59 % (31-73) 59 % (31-73) Lymphocytes (%) (Auto) 31 % (24-48) 33 % (24-48) Monocytes (%) (Auto) 7 % (0-9) 5 % (0-9) Eosinophils (%) (Auto) 2 % (0-3) 2 % (0-3) Basophils (%) (Auto) 1 % (0-3) 0 % (0-3) Neutrophils # (Auto) 4.2 x10^3uL (1.8-7.7) 4.2 x10^3uL (1.8-7.7) Lymphocytes # (Auto) 2.2 x10^3/uL (1.0-4.8) 2.4 x10^3/uL (1.0-4.8) Monocytes # (Auto) 0.5 x10^3/uL (0.0-1.1) 0.4 x10^3/uL (0.0-1.1) Eosinophils # (Auto) 0.1 x10^3/uL (0.0-0.7) 0.2 x10^3/uL (0.0-0.7) Basophils # (Auto) 0.1 x10^3/uL (0.0-0.2) 0.0 x10^3/uL (0.0-0.2) Prothrombin Time 13.1 SEC (11.7-14.0) Prothromb Time International Ratio 1.0 (0.8-1.1) Activated Partial Thromboplast Time 25 SEC (24-38) D-Dimer (Nita) 1.00 ug/mlFEU (0.00-0.50) Sodium Level 142 mmol/L (136-145) 143 mmol/L (136-145) Potassium Level 3.3 mmol/L (3.5-5.1) 3.8 mmol/L (3.5-5.1) Chloride Level 105 mmol/L (98-107) 105 mmol/L (98-107) Carbon Dioxide Level 27 mmol/L (21-32) 27 mmol/L (21-32) Anion Gap 10 (6-14) 11 (6-14) Blood Urea Nitrogen 7 mg/dL (7-20) 9 mg/dL (7-20) Creatinine 0.9 mg/dL (0.6-1.0) 1.0 mg/dL (0.6-1.0) Estimated GFR (Cockcroft-Gault) 78.7 69.7 Glucose Level 113 mg/dL (70-99) 131 mg/dL (70-99) Calcium Level 9.7 mg/dL (8.5-10.1) 9.4 mg/dL (8.5-10.1) Total Bilirubin 0.6 mg/dL (0.2-1.0) Direct Bilirubin 0.1 mg/dL (0.0-0.2) Aspartate Amino Transf (AST/SGOT) 17 U/L (15-37) Alanine Aminotransferase (ALT/SGPT) 29 U/L (14-59) Alkaline Phosphatase 132 U/L (46-116) Troponin I Quantitative < 0.017 ng/mL (0.000-0.055) < 0.017 ng/mL (0.000-0.055) < 0.017 ng/mL (0.000-0.055) IJ-Dvf-N-Type Natriuretic Peptide 46 pg/mL (0-124) Total Protein 8.0 g/dL (6.4-8.2) Albumin 3.5 g/dL (3.4-5.0) Lipase 74 U/L (73-393) Segmented Neutrophils % 49 % (35-66) Band Neutrophils % 9 % (0-9) Lymphocytes % 36 % (24-48) Monocytes % 5 % (0-10) Eosinophils % 1 % (0-5) Platelet Estimate Adequate (ADEQUATE) Medications Current Medications Ondansetron HCl (Zofran) 4 mg PRN Q8HRS PRN IV NAUSEA/VOMITING; Start 10/12/17 at 15:45; Stop 10/12/17 at 16:32; Status DC Morphine Sulfate (Morphine Sulfate) 2 mg PRN Q2HR PRN IV PAIN; Start 10/12/17 at 15:45; Stop 10/13/17 at 15:44 Sodium Chloride 1,000 ml @ 100 mls/hr Q10H IV Last administered on 10/13/17at 05:51; Start 10/12/17 at 15:42; Stop 10/13/17 at 15:41 Iohexol (Omnipaque 300 Mg/ml) 75 ml 1X ONCE IV Last administered on 10/12/17at 16:30; Start 10/12/17 at 16:30; Stop 10/12/17 at 16:31; Status DC Info (CONTRAST GIVEN -- Rx MONITORING) 1 each PRN DAILY PRN MC SEE COMMENTS; Start 10/12/17 at 16:30; Stop 10/14/17 at 16:29 Ondansetron HCl (Zofran) 4 mg PRN Q6HRS PRN IV NAUSEA/VOMITING Last administered on 10/12/17at 16:40; Start 10/12/17 at 16:45 Acetaminophen (Tylenol) 500 mg PRN Q6HRS PRN PO MILD PAIN / TEMP; Start at 16:30 Acetaminophen/ Hydrocodone Bitart (Lortab 5/325) 1 tab PRN Q4HRS PRN PO PAIN MODERATE TO SEVERE; Start 10/12/17 at 16:30 Labetalol HCl (Normodyne Iv Push) 20 mg PRN Q2HR PRN IVP HYPERTENSION, SEE COMMENTS; Start 10/12/17 at 16:30 Diphenhydramine HCl (Benadryl) 25 mg PRN QHS PRN PO INSOMNIA; Start 10/12/17 at 16:30 Potassium Chloride (Klor-Con) 40 meq 1X ONCE PO Last administered on at 18:30; Start 10/12/17 at 17:30; Stop 10/12/17 at 17:31; Status DC Multi-Ingredient Mouthwash/Gargle (Gi Cocktail) 20 ml PRN QID PRN PO CHEST PAIN Last administered on 10/12/17at 20:08; Start 10/12/17 at 17:00 Pantoprazole Sodium (Protonix) 40 mg DAILYAC PO Last administered on 10/13/17at 08:17; Start 10/13/17 at 07:30 Pantoprazole Sodium (Protonix) 40 mg 1X ONCE PO Last administered on at 18:29; Start 10/12/17 at 17:30; Stop 10/12/17 at 17:31; Status DC Active Scripts Active Reported Losartan Potassium 50 Mg Tablet 50 Mg PO DAILY Vitals/I & O Vital Sign - Last 24 Hours 10/12/17 10/12/17 10/12/17 10/12/17 14:10 14:11 14:41 15:11 Temp 98.1 98.1 Pulse 89 89 85 83 Resp 20 B/P (MAP) 175/92 (119) 175/92 (119) 168/101 (123) 182/91 (121) Pulse Ox 98 96 98 O2 Delivery Room Air Room Air Room Air Room Air 10/12/17 10/12/17 10/12/17 10/12/17 15:41 16:11 16:41 17:52 Pulse 86 75 77 74 B/P (MAP) 187/100 (129) 148/72 (97) 163/88 (113) 172/84 (113) Pulse Ox 98 98 97 97 O2 Delivery Room Air Room Air Room Air Room Air 10/12/17 10/12/17 10/12/17 10/12/17 18:22 19:00 20:00 23:00 Temp 98.1 97.7 98.1 97.7 Pulse 74 82 73 Resp 20 20 B/P (MAP) 156/74 (101) 160/76 (104) 134/80 (98) Pulse Ox 96 96 96 O2 Delivery Room Air Room Air Room Air Room Air 10/13/17 10/13/17 10/13/17 03:18 07:00 08:00 Temp 98.2 97.7 98.2 97.7 Pulse 74 81 Resp 20 19 B/P (MAP) 129/67 (87) 157/80 (105) Pulse Ox 96 93 O2 Delivery Room Air Room Air Room Air DOMINICK MARAVILLA MD Oct 13, 2017 12:02
[2017-10-13] MEDS ORDERED: INDO25CA5 PO (12:58)
[2017-10-13] MEDS ORDERED: Pantoprazole PO (12:58)
--- NOTE | 2017-10-13 12:59 | PDOC3 ---
*Discharge Summary* Date of Admission: Oct 12, 2017 Date of Discharge: Oct 13, 2017 Admitting Diagnosis Problems Medical Problems: (1) Chest pain Status: Acute Final Diagnosis Chest pain likely chest wall Family history of CAD Obese Nonsmoker nondrinker Accelerated hypertension POA Mild hypokalemia replaced Elevated d-dimer 1.0, no history of clots in the past no PE on CT Problems Medical Problems: (1) Chest pain Status: Acute CONSULTS cardiology Procedures CXR, CTA chest Brief Hospital Course Ms. Sahu is a 57 old [sex] who presented with [ ] Disposition/Orders: D/C to Home CONDITION AT DISCHARGE: Improved Diet: Cardiac Home Meds Active Scripts Indomethacin (INDOMETHACIN) 25 Mg Capsule, 1 CAP PO TID, #30 CAP Prov:DOMINICK MARAVILLA MD 10/13/17 [Pantoprazole] 40 MG TABLET.DR Atkinson Conflict Check, 40 MG PO DAILYAC for 30 Days, #30 2 Refills Prov:DOMINICK MARAVILLA MD 10/13/17 Reported Medications Losartan Potassium (LOSARTAN POTASSIUM) 50 Mg Tablet, 50 MG PO DAILY, TAB 10/12/17 Scheduled Indomethacin (Indomethacin), 1 CAP PO TID Losartan Potassium (Losartan Potassium), 50 MG PO DAILY, (Reported) [Pantoprazole], 40 MG PO DAILYAC Scripts Indomethacin (INDOMETHACIN) 25 Mg Capsule 1 CAP PO TID, #30 CAP Prov: DOMINICK MARAVILLA MD 10/13/17 [Pantoprazole] 40 MG TABLET.DR Atkinson Conflict Check 40 MG PO DAILYAC for 30 Days, #30 2 Refills Prov: DOMINICK MARAVLILA MD 10/13/17 FOLLOW UP APPOINTMENT: PCP 1-2 weeks, [facility] will call to schedule out pt stress test, take medication Time Spent Total time spent with patient [45] minutes for coordination of care, counseling , and education. DOMINICK MARAVILLA MD Oct 13, 2017 12:59
== END 2017-10-13 14:30 | disposition home or self-care (01) | DRG 641 ==
LOC: ER 14:07 → 5 SOUTH 15:45
PROVIDERS: ADMIT Internal Medicine; ATTEND Internal Medicine
DX: E87.6 Hypokalemia (principal); R07.89 Other chest pain; I10 Essential (primary) hypertension; E78.5 Hyperlipidemia, unspecified; E66.9 Obesity, unspecified; R79.1 Abnormal coagulation profile; Z68.39 Body mass index [BMI] 39.0-39.9, adult; Z71.89 Other specified counseling; Z84.89 Family history of other specified conditions; Z82.49 Family history of ischemic heart disease and other diseases of the circulatory system
CPT/HCPCS: 36415; 71045; 71275; 80048; 80076; 83690; 83880; 84484; 85007; 85025; 85379; 85610; 85730; 93005; 96374; J2405; J7030; Q9967; 99285-25

== ENCOUNTER → 2017-10-25 | Outpatient (CLI) | payer BC ==
[2017-10-13 11:00] VITALS: BP 150/71
[~2017-10-25] MED LIST: INDO25CA5 PO; LOSA50TA7 PO; Pantoprazole PO; REGADENOSON 0.4 MG/5 ML DISP.SYRIN. IV ONE
--- NOTE | 2017-10-25 11:14 | CARD ---
MR#: [id number] Date of Study: 10/25/2017 Ordering Physician: DANIEL NGUYEN, Referring Physician: Xi CASTILLO: JAZLYN Pritchard APPROVED REPORT EXAM: Two-dimensional and M-mode echocardiogram with Doppler and color Doppler. Other Information Quality : AverageHR: 84bpm Technically limited study due to body habitus. INDICATION Chest Pain Chest pressure RISK FACTORS Hypertension 2D DIMENSIONS RVDd3.4 (2.9-3.5cm)Left Atrium(2D)3.5 (1.6-4.0cm) IVSd1.6 (0.7-1.1cm)Aortic Root(2D)3.5 (2.0-3.7cm) LVDd4.1 (3.9-5.9cm)LVOT Diameter2.3 (1.8-2.4cm) PWd1.4 (0.7-1.1cm)LVDs2.6 (2.5-4.0cm) FS (%) 35.2 %SV47.9 ml LVEF(%)65.1 (>50%) M-Mode DIMENSIONS IVSd1.49 (0.7-1.1cm)LVDd4.05 (4.0-5.6cm) PWd1.32 (0.7-1.1cm)IVSs1.56 cm FS (%) 41 %LVDs2.38 (2.0-3.8cm) PWs2.06 cmLVEF(%)73 (>50%) Aortic Valve AoV Peak Roldan.127.1cm/sAoV VTI23.7cm AO Peak GR.6.5mmHgLVOT Peak Roldan.85.7cm/s LVOT VTI 16.73cmAO Mean GR.4mmHg MIREYA (VMAX)1.85xd1OXZ (VTI)2.81cm2 Mitral Valve MV E Czhiqvgt82.1cm/sMV DECEL ETVH471sk MV A Xjibpojg46.8cm/sMV ZRJ81vb E/A Ratio0.7MVA (PHT)2.98cm2 TDI E/Lateral E'11.2E/Medial E'10.4 Pulmonary Valve PV Peak Wtjahjgf83.6cm/sPV Peak Grad.3mmHg Tricuspid Valve TR P. Nczyhqjo860kx/sTR Peak Gr.17mmHg LEFT VENTRICLE The left ventricle is normal size. There is mild to moderate concentric left ventricular hypertrophy. The left ventricular systolic function is normal. The ejection fraction is estimated at 60-65%. Ther e is normal LV segmental wall motion. Transmitral Doppler flow pattern is Grade I-abnormal relaxation pattern. RIGHT VENTRICLE The right ventricle is normal size. The right ventricular systolic function is normal. ATRIA The left atrium size is normal. The right atrium size is normal. The interatrial septum is intact wit h no evidence for an atrial septal defect or patent foramen ovale as noted on 2-D or Doppler imaging. AORTIC VALVE The aortic valve is mildly thickened but opens well. Doppler and Color Flow revealed no significant a ortic regurgitation. There is no significant aortic valvular stenosis. There is no aortic valvular ve getation. MITRAL VALVE The mitral valve is mildly thickened. There is no evidence of mitral valve prolapse. There is no mitr al valve stenosis. Doppler and Color-flow revealed trace mitral regurgitation. TRICUSPID VALVE The tricuspid valve is not well visualized. Doppler and Color Flow revealed no tricuspid valve regurg itation noted. There is no tricuspid valve prolapse or vegetation. There is no tricuspid valve stenos is. PULMONIC VALVE The pulmonic valve is not well visualized. Doppler and Color Flow revealed no pulmonic valvular regur gitation. There is no pulmonic valvular stenosis. GREAT VESSELS The aortic root is normal size. The aortic root displays mild sclerocalcific changes of the aortic ro ot. There is enlargement of the right sinus of valsalva. The IVC is normal in size and collapses >50% with inspiration. PERICARDIAL EFFUSION There is no pleural effusion. There is no evidence of significant pericardial effusion. Critical Notification Critical Value: No <Conclusion> The left ventricular systolic function is normal. The ejection fraction is estimated at 60-65%. There is normal LV segmental wall motion. Transmitral Doppler flow pattern is Grade I-abnormal relaxation pattern. Doppler and Color-flow revealed trace mitral regurgitation. There is no evidence of significant pericardial effusion. Signed by : Daniel Nguyen, Electronically Approved : 10/25/2017 11:14:24
--- NOTE | 2017-10-26 14:03 | RAD ---
MR#: [id number] Date of Study: 10/26/2017 Ordering Physician: DANIEL ALVAREZ, Referring Physician: DOUGLAS CASTILLO Tech: Aries Mejía NMTCB, ARRT (R) (N) APPROVED REPORT Test Type: Pharmacological Stress Nurse/Tech: Samantha Ji RN Test Indications: Chest Pain Cardiac History: Hypertension, Family history Medications: See Electronic Medical Record Medical History: See Electronic Medical Record Resting ECG: SR Resting Heart Rate: 75 bpm Resting Blood Pressure: 175/95mmHg Pretest Chest Pain: None Nurse/Tech Notes S1,S2 and lungs clear to auscultation. Consent: The procedure was explained to the patient in lay terms. Informed consent was witnessed. Laz eout was entered into [employer]. History and Stress Test performed by SVETLANA Mejía Pharm. Details Pharmacologic stress testing was performed using 0.4mg per 5ml of regadenoson given intravenously ove r 7-10 seconds. Stress Symptoms Dizziness, Nausea POST EXERCISE Reason for Termination: Infusion complete Target HR: No Max HR: 101 bpm Max Blood Pressure: 165/83mmHg Blood Pressure response to exercise: Normal blood pressure response during stress. Heart Rate response to exercise: WNL Chest Pain: No. Arrhythmia: No. ST Change: Yes. Inverted ST in lead V1 during stress which returned to baseline at end of test INTERPRETATION Stress EKG Conclusion: Baseline EKG showed sinus rhythm. No ischemic changes at peak stress. No arr hythmias. Imaging Protocol IMAGE PROTOCOL: Rest Tc-99m/stress Tc-99m 2 days Rest: Stress: Viability: Radiopharm.Tc99m HhhxeehipGc40u Sestamibi Bbaa94kMb 33.3mCi Duration 12min. 12min. Img Date 10/25/2017 10/26/2017 Inj-Img Hzne57tll. 60min. Rest Admin Site:IV - Right AntecubitalAdministrator:LESA Garcia, ARRT (R)(N) Stress Admin Site: IV - Left HandAdministrator: Warner Bullis, CORPORATE ASSOCIATE ATTORNEY STRESS DATA End Diast. Vol.62.0mlAv. Heart Rate86.0bpm End Syst. Vol.19.0mlCO Index BSA0.0L/min Myocardial Mass93.0gEject. Vszrfzbh23.0% Stress Rates Pk. Fill Rate4.26EDV/secLVtime Pk. Fill 74.11msec Pk. Empty Rate4.27ESV/secLVtime Pk. Eject56.57msec 1/3 Pk. Fill2.87EDV/sec Stress Scores Regional WT0.00Summed WT0.00 Regional WM1.00Summed WM10.00 Study quality was good. Left Ventricular size was Normal at Rest and Stress. Lung uptake was Normal. Left Ventricular ejection fraction is 69%. The rest and stress images show normal perfusion, normal contraction and thickening. LV Perf. Quant 17 Seg. SSS0.00 17 Seg. SRS0.00 17 Seg. SDS0.00 Stress Defect Extent (% LAD)0.00Rest Defect Extent (% LAD)0.00Rev. Defect Extent (% LAD)0.00 Stress Defect Extent (% LCX) 0.00Rest Defect Extent (% LCX)0.00Rev. Defect Extent (% LCX)0.00 Stress Defect Extent (% RCA)0.00Rest Defect Extent (% RCA)0.00Rev. Defect Extent (% RCA)0.00 Stress Defect Extent (% DEVON)0.00Rest Defect Extent (% DEVON)0.00Rev. Defect Extent (% DEVON)0.00 Conclusion 1. Regadenoson cardioisotope stress test did not show any evidence of ischemia or infarct. 2. Normal left ventricular systolic function with ejection fraction calculated at 69%. 3. Low risk for cardiac events. Signed by : Daniel Alvarez, Electronically Approved : 10/26/2017 14:02:10
== END | disposition home or self-care (01) ==
LOC: ECHO 08:27
PROVIDERS: ATTEND Internal Medicine Cardiovascular Disease
DX: R07.9 Chest pain, unspecified (principal); I10 Essential (primary) hypertension; E78.5 Hyperlipidemia, unspecified; E66.9 Obesity, unspecified; E87.6 Hypokalemia; Z68.39 Body mass index [BMI] 39.0-39.9, adult; Z82.49 Family history of ischemic heart disease and other diseases of the circulatory system
CPT/HCPCS: 78452; 93306; 96374; 96375; A9500; 96376; J2785